=== PATIENT | female | born 1990 | race African-American/Black ===

== ENCOUNTER 2016-09-01 08:53 | Emergency (ER) | payer SELFPAY ==
[2016-09-01 09:06] VITALS: BP 113/80; BMI 18.3
[2016-09-01] MEDS ORDERED: XYLOCAINE 1 % (PLAIN) ONE (09:13)
--- NOTE | 2016-09-01 09:34 | DR.GENAD ---
HPI - PCP Primary Care Physician: LUIS - HPI Comment HPI Comment: WORSE TODAY. NO FEVER. NO DRAINAGE. - Complaint/Symptoms Chief Complaint Doctors Comments: ABSCESS LEFT ARM TIMES 2 DAYS Chief Complaint:: PT C/O HAVING A BIG KNOT UNDER HER RIGHT ARM,,,,,,, - Nurses notes reviewed Nurses Notes Review: Yes - Source History Provided: Patient - Mode of Arrival Mode of Arrival: Ambulatory - Timing Onset of Chief Complaint: 08/30/16 Came on: Suddenly - Duration Duration: Constant Duration: Hours - Severity Severity: Moderate PMH - PMH Past Medical History: No Past Surgical History: No Surgical History: No History - Family History History of Family Medical Conditions: No - Social History Does patient currently use any type of tobacco product: No Have you used tobacco products in the last 12 months: No Type of Tobacco Use: Cigarettes Does any household member use tobacco: No Alcohol Use: None Do you use any recreational Drugs:: No Lives With: Family Lives Where: Home - infectious screening In the last 2 months have you had wt loss of >10#?: NO Have you had fever, night sweats or hemotysis?: No Have you traveled outside the country in the last 6 months?: No Isolation: Reverse ROS - Review of Systems Constitutional: No Symptoms Reported Eyes: No Symptoms Reported ENTM: No Symptoms Reported Respiratoy: No Symptoms Reported Cardiovascular: No Symptoms Reported Gastrointestinal/Abdominal: No Symptoms Reported Genitourinary: No Symptoms Reported Neurological: No Symptoms Reported Musculoskeletal: Other (ABSCES LEFT AXILLAR.) Integumentary: Change in Color, Other (ABSCESS SIZE GULF BALL UNDER LEFT AXILLA. ) Hematologic/Lymphatic: No Symptoms Reported Endocrine: No Symptoms Reported All Other Systems: Reviewed and Negative PE - Vital Signs Vitals: Temperature 97.7 F Pulse Rate 79 Respiratory Rate 20 Blood Pressure [Right Arm] 105/65 Blood Pressure [Left Arm] 119/67 Blood Pressure 113/80 O2 Sat by Pulse Oximetry 100 - General Limitations: No Limitations General Appearance: Alert - Head Head Exam: Normal Inspection - Eyes Eye exam: Normal Appearance - ENT ENT Exam: Normal External Ear Exam External Ear Exam: Normal External Inspection Nose Exam: Normal Nose Exam Mouth Exam: Normal Inspection Throat Exam: Normal Inspection - Neck Neck Exam: Trachea Midline - Chest Chest Inspection: Symmetric Chest Wall Rise - Respiratory Respiratory Exam: Bilateral Clear to Auscultation - Cardiovascular Cardiovascular Exam: Regular Rate, Normal Rhythm, Normal Heart Sounds - Abdominal Exam Abdominal Exam: Normal Inspection - Extremities Extremities Exam: Tenderness (ABSCESS LT AXILLAR.) - Back Back Exam: Normal Inspection - Neurologic Neurological Exam: Alert, Oriented X3 - Psychiatric Psychiatric Exam: Anxious - Skin Skin Exam: Erythema MDM - Differential Diagnosis Differential Diagnosis: ABSCESS, CELLULITIS Course - Treatment Treatment: SEE ORDERS - Education/Counseling Education/Counseling: Patient, Education Educated On: Treatment, Diagnosis, Needs for Follow Up ROR - Labs Reviewed Laboratory: 09/01/16 09:42 Arm - Abscess Gram Stain - Final Procedures - Incision and Drainage Blade Size: 11 I & D Procedure: betadine prep, sterile dressing applied, gauze wick placed Progress: LEFT AXILLA ABSCESS DRAINED AND 1/4 INCH PLAIN GAUZE PACKING DONE. - Diagnosis Discharge Problem: Abscess Cellulitis Qualifiers: Site of cellulitis: extremity Site of cellulitis of extremity: axilla Laterality: left Qualified Code(s): L03.112 - Cellulitis of left axilla - Discharge Plan Disposition: 01 HOME, SELF-CARE Condition: Stable Prescriptions: Acetaminophen/Codeine Tab [TYLENOL w/CODEINE #3 (300 MG/30 MG) *] 1 tab PO Q6H PRN #12 tab PRN Reason: Pain Ibuprofen [MOTRIN TAB 600 MG *] 600 mg PO TID PRN #20 tab PRN Reason: Pain/Inflammation Sulfamethoxazole-Trimethoprim [BACTRIM DS TAB 800/160 MG *] 1 tab PO BID #20 tab - Follow ups/Referrals Follow ups/Referrals: NFD,None [Primary Care Provider] - 3 days - Instructions Instructions: Abscess, Cellulitis Additional Instructions: RETURN TO ED IF WORSE.
[2016-09-01] MEDS ORDERED: ADACEL TDaP IM ONE ×2 (09:42→09:45)
== END 2016-09-01 10:19 | disposition home or self-care (01) ==
LOC: ER 09:17
PROC: 0X9540Z Drainage of Left Axilla with Drainage Device, Percutaneous Endoscopic Approach (ICD-10-PCS; principal; 2016-09-01)
DX: L02.412 Cutaneous abscess of left axilla (principal); L03.112 Cellulitis of left axilla
CPT/HCPCS: 10060; 87070; 87075; 87205; 90471; 99282; J2001

== ENCOUNTER 2016-11-28 14:10 | Emergency (ER) | payer MEDICAID ==
[2016-11-28 14:19] VITALS: BP 110/73; BMI 18.6
--- NOTE | 2016-11-28 14:23 | DR.EXTPAIN ---
HPI - Time seen Time seen: 14:45 - Complaint/Symptoms Chief Complaint Doctor Comments: right arm pit abscess x 3 days. - Nurses notes reviewed Nurses Notes Review: Yes - Source History Provided: Patient - Mode of arrival Mode of Arrival: Ambulatory - Context History of: None - Associated signs and symptoms Associated Signs and Symptoms: Pain, Swelling - Other history Other History: Hx of left arm abscess 2 months ago PMH - PMH Past Surgical History: No Surgical History: No History - Social History Do you use any recreational Drugs:: No ROS - Review of Systems Constitutional: No Symptoms Reported Eyes: No Symptoms Reported ENTM: No Symptoms Reported Respiratoy: No Symptoms Reported Cardiovascular: No Symptoms Reported Gastrointestinal/Abdominal: No Symptoms Reported Genitourinary: No Symptoms Reported Neurological: No Symptoms Reported Musculoskeletal: No Symptoms Reported Integumentary: Lesions (right axillae abscess) Hematologic/Lymphatic: No Symptoms Reported Endocrine: No Symptoms Reported PE - Vital Signs Vitals: Temperature 98.9 F Pulse Rate 90 Respiratory Rate 22 Blood Pressure [Right Arm] 105/65 Blood Pressure [Left Arm] 119/67 Blood Pressure 110/73 O2 Sat by Pulse Oximetry 100 - General Limitations: No Limitations General Appearance: Alert, In No Apparent Distress - Head Head Exam: Normal Inspection - Eyes Eye exam: Normal Appearance, EOMI. negative: Scleral Icterus, Conjunctival Injection - Neck Neck Exam: Normal Inspection, Full ROM, Trachea Midline - Chest Chest Inspection: Normal Inspection - Respiratory Respiratory Exam: Normal Lung Sounds Bilat. negative: Accessory Muscle Use, Respiratory Distress - Extremities Extremities Exam: Normal Inspection, Full ROM, Tenderness - Neurological Neurological Exam: Alert, Oriented X3, CN II-XII Intact - Psychiatric Psychiatric Exam: Anxious - Skin Skin Exam: Intact. negative: Normal Color Type of Lesion: Abscess (right axillae 3-4cm axillae, red tender) Distribution: RUE Description: Size (3-4cm), Tenderness, Erythematous, Swelling - Diagnosis Discharge Problem: Abscess - Discharge Plan Condition: Stable Prescriptions: Sulfamethoxazole/Trimethoprim [Bactrim 400-80 mg] 1 tab PO Q12H #20 tab Tramadol HCl [ULTRAM 50 MG *] 50 mg PO Q8H PRN #12 tab PRN Reason: Pain - Follow ups/Referrals Follow ups/Referrals: NFD,None [Primary Care Provider] - 3 days - Instructions
== END 2016-11-28 15:13 | disposition home or self-care (01) ==
LOC: ER 14:24
PROC: 0J9D0ZZ Drainage of Right Upper Arm Subcutaneous Tissue and Fascia, Open Approach (ICD-10-PCS; principal; 2016-11-28)
DX: L02.411 Cutaneous abscess of right axilla (principal)
CPT/HCPCS: 10060; 87070; 87075; 87205; 99282

== ENCOUNTER 2017-05-03 11:03 | Emergency (ER) | payer SELFPAY ==
[2017-05-03 11:08] VITALS: BP 103/77; BMI 16.2
--- NOTE | 2017-05-03 12:24 | ED.ABDFE ---
HPI - Time seen Time seen: 12:20 - PCP Primary Care Physician: nfd - Complaint Chief Complaint Doctors Comments: A 26 y/o female presenting with complains of lower abdominal pain since last night. She has had nausea x 2 days. Vomitting noted yesterday. She can't charactrize the pain. She denies fever. She has not travelled outside of this area and denies consumption of poorly prepared food items. Chief Complaint:: patient c/o suprapubic and left lower quadrant pain for 3 weeks. patient stated she vomited yellow last night. patient states is feels like something is pulling and it comes and goes - Nurses notes reviewed Nurses Notes Review: Yes - Source History Provided: Patient - Mode of arrival Mode of Arrival: Ambulatory - Timing Onset of Chief Complaint: 04/15/17 - Location Location: Suprapubic - Modifying Worsening Factors: Nothing - Associated signs and symptoms Associated Signs and Symptoms: Nausea, Vomiting PMH - PMH Past Medical History: No Past Surgical History: No Surgical History: No History - Family History History of Family Medical Conditions: Yes Family Medical History: Cancer, Hypertension - Social History Does patient currently use any type of tobacco product: No Have you used tobacco products in the last 12 months: No Type of Tobacco Use: None Does any household member use tobacco: No Do you use any recreational Drugs:: No Lives With: Family Lives Where: Home - infectious screening In the last 2 months have you had wt loss of >10#?: NO Have you had fever, night sweats or hemotysis?: No Have you traveled outside the country in the last 6 months?: No Isolation: Standard ROS - Review of Systems Constitutional: No Symptoms Reported Eyes: No Symptoms Reported ENTM: No Symptoms Reported Respiratoy: No Symptoms Reported Cardiovascular: No Symptoms Reported Gastrointestinal/Abdominal: Abdominal Pain, Nausea, Vomiting Genitourinary: No Symptoms Reported Neurological: No Symptoms Reported Musculoskeletal: No Symptoms Reported Integumentary: No Symptoms Reported Hematologic/Lymphatic: No Symptoms Reported Endocrine: No Symptoms Reported Psychiatric: No Symptoms Reported All Other Systems: Reviewed and Negative PE - Vital Signs Vitals: Temperature 98.3 F Pulse Rate 74 Respiratory Rate 18 Blood Pressure [Right Arm] 105/65 Blood Pressure [Left Arm] 119/67 Blood Pressure 103/77 O2 Sat by Pulse Oximetry 99 - General Limitations: No Limitations, Language Barrier General Appearance: Alert, In No Apparent Distress - Head Head Exam: Normal Inspection - Eyes Eye exam: Normal Appearance - ENT ENT Exam: Normal Exam - Neck Neck Exam: Normal Inspection - Chest Chest Inspection: Normal Inspection - Respiratory Respiratory Exam: Normal Lung Sounds Bilat - Cardiovascular Cardiovascular Exam: Regular Rate, Normal Rhythm - Abdominal Exam Abdominal Exam: Normal Inspection, Normal Bowel Sounds, Soft, Tenderness Abdominal Tenderness: Suprapubic - Back Back Exam: Normal Inspection, Full ROM - Extremeties Extremities Exam: Normal Inspection, Full ROM - Neurologic Neurological Exam: Alert, Oriented X3, CN II-XII Intact - Psychiatric Psychiatric Exam: Normal Affect, Normal Mood - Skin Skin Exam: Warm, Dry, Intact ROR - Labs Reviewed Result Diagrams: 05/03/17 12:35 05/03/17 12:35 Laboratory: WBC 9.7 X10^3/uL (3.6-10.0) 05/03/17 12:35 RBC 4.07 X10^6/uL (3.5-5.4) 05/03/17 12:35 Hgb 12.3 g/dL (12.0-16.0) 05/03/17 12:35 Hct 35.8 % (36.0-47.0) L 05/03/17 12:35 MCV 87.9 fL (80.0-100.0) 05/03/17 12:35 MCH 30.2 pg (27.0-34.0) 05/03/17 12:35 MCHC 34.4 g/dL (33.0-35.0) 05/03/17 12:35 RDW 13.9 % (11.6-16.5) 05/03/17 12:35 Plt Count 152 X10^3/uL (150.0-450.0) 05/03/17 12:35 MPV 9.9 fL (7.4-11.0) 05/03/17 12:35 Neut % 76.4 % (42.0-75.0) H 05/03/17 12:35 Lymph % 16.4 % (21.0-51.0) L 05/03/17 12:35 Hunt % 6.2 % (0.0-13.0) 05/03/17 12:35 Eos % 0.5 % (0.9-2.9) L 05/03/17 12:35 Baso % 0.5 % (0.2-1.0) 05/03/17 12:35 Neut # 7.4 x10^3/uL (2.2-4.8) H 05/03/17 12:35 Lymph # 1.6 X10^3/uL (1.3-2.9) 05/03/17 12:35 Hunt # 0.6 x10^3/uL (0.3-0.8) 05/03/17 12:35 Eos # 0.0 x10^3/uL (0.0-0.2) 05/03/17 12:35 Baso # 0.0 X10^3/uL (0.0-0.1) 05/03/17 12:35 Absolute Nucleated RBC 0.1 /100WBC 05/03/17 12:35 Sodium 133 mmol/L (136-145) L 05/03/17 12:35 Corrected Sodium TNP 05/03/17 12:35 Potassium 3.9 mmol/L (3.5-5.1) 05/03/17 12:35 Chloride 99 mmol/L (98-107) 05/03/17 12:35 Carbon Dioxide 24.5 mmol/L (21-32) 05/03/17 12:35 BUN 6 mg/dL (7-18) L 05/03/17 12:35 Creatinine 0.53 mg/dL (0.55-1.02) L 05/03/17 12:35 Est GFR (MDRD) Af Amer > 60 (>60) 05/03/17 12:35 Est GFR (MDRD) Non-Af > 60 (>60) 05/03/17 12:35 Glucose 79 mg/dL (65-99) 05/03/17 12:35 Calcium 8.9 mg/dL (8.5-10.1) 05/03/17 12:35 Corrected Calcium TNP 05/03/17 12:35 Total Bilirubin 0.30 mg/dL (0.2-1.0) 05/03/17 12:35 AST 29 Units/L (15-37) 05/03/17 12:35 ALT 27 Units/L (12-78) 05/03/17 12:35 Alkaline Phosphatase 74 Units/L (46-116) 05/03/17 12:35 Total Protein 7.9 g/dL (6.4-8.2) 05/03/17 12:35 Albumin 4.0 g/dL (3.4-5.0) 05/03/17 12:35 Globulin 3.9 g/dL (2.5-4.5) 05/03/17 12:35 Albumin/Globulin Ratio 1.0 Ratio (1.1-2.1) L 05/03/17 12:35 HCG, Qual Positive >10 mIU/mL 05/03/17 12:35 HCG, Quant [id number] mIU/mL (0-6) H 05/03/17 12:35 Specimen Type Clean catch urine 05/03/17 13:47 Urine Color Yellow (YELLOW) 05/03/17 13:47 Urine Appearance Clear (CLEAR) 05/03/17 13:47 Urine pH 7.0 (5.0 - 8.0) 05/03/17 13:47 Ur Specific [place] 1.010 (1.000-1.030) 05/03/17 13:47 Urine Protein Negative (NEGATIVE) 05/03/17 13:47 Urine Glucose (UA) Negative (NEGATIVE) 05/03/17 13:47 Urine Ketones Negative (NEGATIVE) 05/03/17 13:47 Urine Occult Blood Negative (NEGATIVE) 05/03/17 13:47 Urine Nitrite Negative (NEGATIVE) 05/03/17 13:47 Urine Bilirubin Negative (NEGATIVE) 05/03/17 13:47 Urine Urobilinogen Normal (NORMAL) 05/03/17 13:47 Ur Leukocyte Esterase Negative (NEGATIVE) 05/03/17 13:47 Urine RBC Negative /HPF (NEGATIVE) 05/03/17 13:47 Urine WBC Rare /HPF (NEGATIVE) 05/03/17 13:47 Ur Squamous Epith Cells Rare /HPF (NEGATIVE) 05/03/17 13:47 Urine Bacteria Negative /HPF (NEGATIVE) 05/03/17 13:47 Ur Culture Indicated? No/not indicated 05/03/17 13:47 - XRAY XRAY Interpreted by: Radiologist (Pelvic U/S: Early IU gestation with EGA of 9 wks. + 2 days with CAPRI of 12/04/17.) - Diagnosis Discharge Problem: Pelvic pain, Abdominal with intrauterine - Discharge Plan Disposition: 01 HOME, SELF-CARE Condition: Stable - Follow ups/Referrals Follow ups/Referrals: NFD,None [Primary Care Provider] - 3 days - Instructions
[2017-05-03] MEDS ORDERED: NS 500 ML IV 500 ML IV ONE (12:25)
[2017-05-03] MEDS ORDERED: PHENERGAN INJ 25 MG IV ONE (12:26)
[2017-05-03] MEDS ORDERED: NS 1000 ML 1,000 ML ONE (12:42)
[2017-05-03] MEDS ORDERED: PHENERGAN INJ 25 MG ONE (12:42)
[2017-05-03 12:46] LABS: BASOPHILS % (AUTO) 0.5 % (0.2-1.0); EOSINOPHILS % (AUTO) 0.5 % (0.9-2.9); HEMATOCRIT 35.8 % (36.0-47.0); HEMOGLOBIN 12.3 g/dL (12.0-16.0); LYMPHOCYTES # (AUTO) 1.6 X10^3/uL (1.3-2.9); LYMPHOCYTES % (AUTO) 16.4 % (21.0-51.0); MEAN CORPUSCULAR HEMOGLOBIN 30.2 pg (27.0-34.0); MEAN CORPUSCULAR HGB CONC 34.4 g/dL (33.0-35.0); MEAN CORPUSCULAR VOLUME 87.9 fL (80.0-100.0); MEAN PLATELET VOLUME 9.9 fL (7.4-11.0); MONOCYTES # (AUTO) 0.6 x10^3/uL (0.3-0.8); MONOCYTES % (AUTO) 6.2 % (0.0-13.0); NEUTROPHILS # (AUTO) 7.4 x10^3/uL (2.2-4.8); NEUTROPHILS % (AUTO) 76.4 % (42.0-75.0); PLATELET COUNT 152 X10^3/uL (150.0-450.0); RED BLOOD COUNT 4.07 X10^6/uL (3.5-5.4); RED CELL DISTRIBUTION WIDTH 13.9 % (11.6-16.5); WHITE BLOOD COUNT 9.7 X10^3/uL (3.6-10.0)
[2017-05-03 12:56] LABS: ALANINE AMINOTRANSFERASE 27 Units/L (12-78); ALKALINE PHOSPHATASE 74 Units/L (46-116); ASPARTATE AMINO TRANSFERASE 29 Units/L (15-37); BLOOD UREA NITROGEN 6 mg/dL (7-18); CALCIUM 8.9 mg/dL (8.5-10.1); CARBON DIOXIDE 24.5 mmol/L (21-32); CHLORIDE 99 mmol/L (98-107); CREATININE 0.53 mg/dL (0.55-1.02); SODIUM 133 mmol/L (136-145); TOTAL PROTEIN 7.9 g/dL (6.4-8.2); eGFR BLACK RACES > 60 (>60); eGFR NON BLACK RACES > 60 (>60)
[2017-05-03 12:58] LABS: SERUM PREGNANCY TEST, QUAL POSITIVE >10 mIU/mL
[2017-05-03 14:04] LABS: BILIRUBIN,URINE NEGATIVE (NEGATIVE); BLOOD/HEMOGLOBIN,URINE NEGATIVE (NEGATIVE); GLUCOSE, URINE NEGATIVE (NEGATIVE); KETONES,URINE NEGATIVE (NEGATIVE); LEUKOCYTE ESTERASE ,URINE NEGATIVE (NEGATIVE); NITRITES,URINE NEGATIVE (NEGATIVE); PROTEIN,URINE NEGATIVE (NEGATIVE); UROBILINOGEN,URINE NORMAL (NORMAL)
[2017-05-03 14:10] LABS: APPEARANCE,URINE CLEAR (CLEAR); COLOR,URINE YELLOW (YELLOW)
[2017-05-03 14:18] LABS: BACTERIA,URINE NEGATIVE /HPF (NEGATIVE); RBC,URINE NEGATIVE /HPF (NEGATIVE); SQUAMOUS EPITHELIAL CELL,UR RARE /HPF (NEGATIVE)
--- NOTE | 2017-05-03 15:21 | US ---
STUDY: OB ULTRASOUND LESS THAN 14 WEEKS History: Having sharp pains and lower belly. Pelvic pain. Comparison: March 14, 2016. None for current . Technique: Multiple grayscale and color flow Doppler images of the pelvis were obtained with focused evaluation of the early gestation. Images were obtained via transabdominal and transvaginal approach. Findings: There is an intrauterine gestational sac identified measuring 44.2 mm. A yolk sac is identified measu ring 4.6 mm. A pole is identified with a CRL measuring 20.2 mm. heart motion is identified with a rate of 177 bpm. The right ovary is normal appearance measuring 41.0 x 21.9 x 17.6 mm. The left ovary is normal appear ance measuring 40.3 x 20.7 x 24.4 mm. IMPRESSION: 1. Early intrauterine gestation with estimated gestational age of 9 weeks 2 days corresponding to an estimated date of delivery of December 04, 2017. Reported By:
== END 2017-05-03 16:15 | disposition home or self-care (01) ==
LOC: ER 11:17
DX: R10.2 Pelvic and perineal pain (principal); R10.84 Generalized abdominal pain; Z3A.09 9 weeks gestation of pregnancy
CPT/HCPCS: 36415; 76801; 80053; 81001; 84702; 84703; 85025; 96365; 96374; 96375; 99282; 99283; 99284; A4222; J2550

== ENCOUNTER 2017-06-12 10:18 | Emergency (ER) | payer MEDICAID ==
[2017-06-12 10:25] VITALS: BP 119/64; BMI 17.6
[2017-06-12 11:08] LABS: BILIRUBIN,URINE NEGATIVE (NEGATIVE); BLOOD/HEMOGLOBIN,URINE NEGATIVE (NEGATIVE); GLUCOSE, URINE NEGATIVE (NEGATIVE); KETONES,URINE NEGATIVE (NEGATIVE); LEUKOCYTE ESTERASE ,URINE NEGATIVE (NEGATIVE); NITRITES,URINE NEGATIVE (NEGATIVE); PROTEIN,URINE NEGATIVE (NEGATIVE); UROBILINOGEN,URINE NORMAL (NORMAL)
[2017-06-12 11:21] LABS: AMORPHOUS SEDIMENT,UR 2+ /HPF (NEGATIVE); APPEARANCE,URINE CLEAR (CLEAR); BACTERIA,URINE NEGATIVE /HPF (NEGATIVE); COLOR,URINE YELLOW (YELLOW); RBC,URINE NONE SEEN /HPF (NEGATIVE); SQUAMOUS EPITHELIAL CELL,UR FEW /HPF (NEGATIVE)
--- NOTE | 2017-06-12 12:33 | DR.GENAD ---
HPI - PCP Primary Care Physician: NFD - Complaint/Symptoms Chief Complaint Doctors Comments: Patient is a 26 y/o single female who presented to the ED this AM with complaint of lower abdominal pain. She denies any vagnial bleeding or discharge. She denies dysuria or fever. Her LMP 02/2017. On 05/03/17:Early intrauterine gestation with estimated gestational age of 9 weeks 2 days corresponding to an estimated date of delivery of December Chief Complaint:: PATIENT STATED THAT YESTERDAY HURTING BOTTOM OF STOMACH LIKE PERIOD PAINS. SHE STATED YOU COULD HEAR BUBBLES POPPING. SHE STATED THAT SHE IS BUT HAS HAD NO CARE AT THIS TIME. SHE STATED THAT SHE IS G-6 P -3. SHE DENIES ANY DISCHARGE. - Source History Provided: Patient - Mode of Arrival Mode of Arrival: Ambulatory - Timing Onset of Chief Complaint: 06/10/17 PMH - PMH Past Medical History: No Past Surgical History: No Surgical History: No History - Family History History of Family Medical Conditions: Yes Family Medical History: Cancer, Hypertension - Social History Does patient currently use any type of tobacco product: No Have you used tobacco products in the last 12 months: No Type of Tobacco Use: None Does any household member use tobacco: No Alcohol Use: None Do you use any recreational Drugs:: No Lives With: Family Lives Where: Home - infectious screening In the last 2 months have you had wt loss of >10#?: NO Have you had fever, night sweats or hemotysis?: No Have you traveled outside the country in the last 6 months?: No Isolation: Standard ROS - Review of Systems Eyes: No Symptoms Reported ENTM: No Symptoms Reported Respiratoy: No Symptoms Reported Cardiovascular: No Symptoms Reported Gastrointestinal/Abdominal: Abdominal Pain Genitourinary: No Symptoms Reported Neurological: No Symptoms Reported Musculoskeletal: No Symptoms Reported Integumentary: No Symptoms Reported Hematologic/Lymphatic: No Symptoms Reported Endocrine: No Symptoms Reported Psychiatric: No Symptoms Reported All Other Systems: Reviewed and Negative PE - Vital Signs Vitals: Temperature 98.3 F Pulse Rate 88 Respiratory Rate 20 Blood Pressure [Right Arm] 105/65 Blood Pressure [Left Arm] 119/67 Blood Pressure 119/64 O2 Sat by Pulse Oximetry 100 - General Limitations: No Limitations General Appearance: Alert, In No Apparent Distress - Head Head Exam: Normal Inspection, Atraumatic - Eyes Eye exam: Normal Appearance, PERRL, EOMI - ENT ENT Exam: Normal Exam External Ear Exam: Normal External Inspection TM/Canal Exam: Bilateral Normal Nose Exam: Normal Nose Exam, Sinus Tenderness Mouth Exam: Normal Inspection Throat Exam: Normal Inspection - Neck Neck Exam: Normal Inspection, Full ROM - Chest Chest Inspection: Normal Inspection - Respiratory Respiratory Exam: Normal Lung Sounds Bilat Respiratory Exam: Bilateral Clear to Auscultation - Cardiovascular Cardiovascular Exam: Regular Rate, Normal Rhythm - Abdominal Exam Abdominal Exam: Normal Inspection, Normal Bowel Sounds Abdominal Tenderness: negative: RUQ, RLQ, LUQ, LLQ, Epigastrium, Suprapubic, Diffuse, Mild, Moderate, Severe, Other - Extremities Extremities Exam: Normal Inspection, Full ROM - Back Back Exam: Normal Inspection, Full ROM - Neurologic Neurological Exam: Alert, Oriented X3, CN II-XII Intact - Psychiatric Psychiatric Exam: Normal Affect - Skin Skin Exam: Warm, Dry, Intact Course - Reevaluation 1st: Improved ROR - Labs Reviewed Laboratory Results Reviewed?: Yes (UA: negative) Laboratory: Specimen Type Clean catch urine 06/12/17 11:00 Urine Color Yellow (YELLOW) 06/12/17 11:00 Urine Appearance Clear (CLEAR) 06/12/17 11:00 Urine pH 8.0 (5.0 - 8.0) 06/12/17 11:00 Ur Specific [place] 1.020 (1.000-1.030) 06/12/17 11:00 Urine Protein Negative (NEGATIVE) 06/12/17 11:00 Urine Glucose (UA) Negative (NEGATIVE) 06/12/17 11:00 Urine Ketones Negative (NEGATIVE) 06/12/17 11:00 Urine Occult Blood Negative (NEGATIVE) 06/12/17 11:00 Urine Nitrite Negative (NEGATIVE) 06/12/17 11:00 Urine Bilirubin Negative (NEGATIVE) 06/12/17 11:00 Urine Urobilinogen Normal (NORMAL) 06/12/17 11:00 Ur Leukocyte Esterase Negative (NEGATIVE) 06/12/17 11:00 Urine RBC None seen /HPF (NEGATIVE) 06/12/17 11:00 Urine WBC None seen /HPF (NEGATIVE) 06/12/17 11:00 Ur Squamous Epith Cells Few /HPF (NEGATIVE) 06/12/17 11:00 Amorphous Sediment 2+ /HPF (NEGATIVE) 06/12/17 11:00 Urine Bacteria Negative /HPF (NEGATIVE) 06/12/17 11:00 Ur Culture Indicated? No/not indicated 06/12/17 11:00 - Diagnosis Discharge Problem: Intrauterine - Discharge Plan Condition: Stable - Follow ups/Referrals Follow ups/Referrals: NFD,None [Primary Care Provider] - 3 days - Instructions
== END 2017-06-12 13:15 | disposition home or self-care (01) ==
LOC: ER 10:37
DX: R10.84 Generalized abdominal pain (principal); Z3A.09 9 weeks gestation of pregnancy
CPT/HCPCS: 36415; 81001; 99282; 99284